=== PATIENT | male | born 1990 | race Caucasian/White ===

== ENCOUNTER 2020-01-09 17:40 | Emergency (ER) | payer OTHER ==
[~2020-01-09 17:40] MED LIST: ACYC400 PO; BACPOLTO30 TP; HYDACE5 PO; HYDACE5325 PO; OXYACE5T PO; PENVK500 PO; RXHYD5325 PO
[2020-01-09 18:45] LABS: Source, Urine Clean Catch
[2020-01-09 18:57] LABS: Bilirubin, Urine Neg (Neg); Blood, Urine 1+ (Neg); Glucose Qualitative, Urine Neg (Neg); Ketones, Urine 1+ (Neg); Leukocyte Esterase, Urine Neg (Neg); Nitrite, Urine Neg (Neg); Protein, Urine Neg (Neg); Specific Gravity, Urine 1.025 (1.003-1.022); Urobilinogen, Urine NORM (Normal)
[2020-01-09 19:14] LABS: Appearance, Urine Clear (Clear); Color, Urine Yellow (P-Yellow)
[2020-01-09 19:15] LABS: Bacteria Not Seen /hpf; Red Blood Cells, Urine Not Seen /hpf (0-2); Squamous Epithelial Cells Not Seen /hpf (Few); Urine Culture Indicated No (No); White Blood Cells, Urine 0-2 /hpf (0-5)
[2020-01-09] MEDS ORDERED: CEPH500 PO (19:18)
== END 2020-01-09 19:23 | disposition home or self-care (01) ==
PROVIDERS: Emergency Medicine
DX: L72.3 Sebaceous cyst (principal); Z88.2 Allergy status to sulfonamides

== ENCOUNTER → 2022-09-11 | Outpatient (CLI) | payer OTHER ==
[~2022-09-11] MED LIST changes: +CEPH500 PO
== END | disposition home or self-care (01) ==
LOC: LAB SHORT 09:20
DX: Z30.8 Encounter for other contraceptive management (principal)

== ENCOUNTER → 2025-05-11 | Outpatient (CLI) | payer OTHER ==
[2025-05-11 17:54] LABS: Chlamydia Trachomatis Urine NOT DETECTED (NOT DETECT); Neisseria Gonorrhoea Urine NOT DETECTED (NOT DETECT)
== END ==
LOC: LAB 15:41 → LAB SHORT 15:41
PROVIDERS: Family Medicine
DX: Z11.3 Encounter for screening for infections with a predominantly sexual mode of transmission (principal)
CPT/HCPCS: 87491; 87591